=== PATIENT | male | born 1970 | race Caucasian/White ===

== ENCOUNTER → 2016-07-30 | Outpatient (CLI) | payer OTHER ==
[2016-07-30 11:26] LABS: HEMATOCRIT 47.1 % (42-52); MEAN CELL VOLUME 85.9 fL (80-100); MEAN CORPUSCULAR HGB CONC 36.1 g/dl (32-36); MEAN PLATELET VOLUME 9.2 fL (7.4-10.4); PLATELET COUNT 205 K/uL (130-400); RED BLOOD COUNT 5.48 M/uL (4.7-6.1); WHITE BLOOD COUNT 9.42 K/uL (4.8-10.8)
[2016-07-30 11:53] LABS: ALT/SGPT 63 U/L (12-78); BLOOD UREA NITROGEN 21 mg/dl (7-18); BUN/CREATININE RATIO 19.1 (10-20); CALCIUM 8.8 mg/dl (8.5-10.1); CARBON DIOXIDE 30 mmol/L (21-32); CHLORIDE 104 mmol/L (98-107); CHOLESTEROL 148 mg/dl (0-200); GLUCOSE 98 mg/dl (70-99); POTASSIUM 4.3 mmol/L (3.5-5.1); SODIUM 142 mmol/L (136-145)
[2016-07-30 11:56] LABS: ALB/GLOB RATIO 1.3 (0.9-2); ALKALINE PHOSPHATASE 61 U/L (45-117); AST/SGOT 34 U/L (15-37); CHOLESTEROL/HDL RATIO 3.5; HDL CHOLESTEROL 42 mg/dl; LDL CHOLESTEROL CALCULATED 76 mg/dl; TRIGLYCERIDES 150 mg/dl (0-150); VERY LOW DENSITY LIPOPROT CALC 30 mg/dl
== END | disposition home or self-care (01) ==
LOC: C.LAB 10:41
PROVIDERS: ATTEND Internal Medicine
DX: Z00.00 Encounter for general adult medical examination without abnormal findings (principal); I10 Essential (primary) hypertension; Z87.11 Personal history of peptic ulcer disease

== ENCOUNTER → 2016-10-14 | Outpatient (CLI) | payer OTHER ==
[2016-10-16 04:01] LABS: URCREATININE 144 MG/DL (>/= 20)
== END | disposition home or self-care (01) ==
LOC: C.LABBC 15:32
PROVIDERS: ATTEND Internal Medicine
DX: Z79.899 Other long term (current) drug therapy (principal)

== ENCOUNTER → 2017-08-05 | Outpatient (CLI) | payer OTHER ==
[2017-08-05 11:07] LABS: ALBUMIN 4.1 gm/dl (3.4-5.0); ALT/SGPT 82 U/L (12-78); BLOOD UREA NITROGEN 18 mg/dl (7-18); CALCIUM 8.9 mg/dl (8.5-10.1); CARBON DIOXIDE 31 mmol/L (21-32); CHOLESTEROL 134 mg/dl (0-200); CREATININE 1.15 mg/dl (0.60-1.40); GLUCOSE 108 mg/dl (70-99); POTASSIUM 3.9 mmol/L (3.5-5.1); SODIUM 141 mmol/L (136-145)
[2017-08-05 11:10] LABS: ALKALINE PHOSPHATASE 58 U/L (45-117); AST/SGOT 43 U/L (15-37); LDL CHOLESTEROL CALCULATED 68 mg/dl; TOTAL PROTEIN 7.2 gm/dl (6.4-8.2)
== END | disposition home or self-care (01) ==
LOC: C.LAB1850 09:57
PROVIDERS: ATTEND Physician Assistant
DX: I10 Essential (primary) hypertension (principal); Z13.220 Encounter for screening for lipoid disorders

== ENCOUNTER → 2017-08-14 | Outpatient (CLI) | payer OTHER ==
[2017-08-14 17:18] LABS: ALBUMIN 4.1 gm/dl (3.4-5.0); TOTAL PROTEIN 7.5 gm/dl (6.4-8.2)
== END | disposition home or self-care (01) ==
LOC: C.LAB1850 16:01
PROVIDERS: ATTEND Physician Assistant
DX: R74.8 Abnormal levels of other serum enzymes (principal)

== ENCOUNTER → 2017-08-16 | Outpatient (CLI) | payer OTHER ==
--- NOTE | 2017-08-16 09:44 | Exercise Stress Test Report ---
Exercise Stress Test Report Exercise Stress Test Report Date of Service: 08/16/17 Exercise Stress Test Report CONCLUSION: -- No Evidence of Myocardial Ischemia by EKG criteria. -- Good exercise tolerance. -- Normal hemodynamic response to exercise. -- Test ended due to fatigue. NO exercise induced CP or unexpected dyspnea. -- A single ventricular couplet occurred at near peak exertion. No other ectopy or arrhythmias. INDICATION FOR EXERCISE STRESS TEST: -- Atypical, non-exertional chest / back pain. -- Family history of heart disease. PROCEDURE: -- Patient exercised for 7:43 on a standard Adolph Protocol attaining a 9.6 MET workload and 88% MPHR. -- No exercise induced CP or unexpected dyspnea. -- Resting HR was 63 bpm and increased to 151 bpm at peak exertion. -- Resting BP was 134/97 and peaked at 188/82 during early recovery phase. -- Resting EKG shows NSR at 63 bpm, Normal tracing. -- Peak EKG shows Sinus Tachycardia at 151 bpm, No S-T segment deviation or T wave abnormalities noted. NORMAL TRACING.
== END | disposition home or self-care (01) ==
LOC: C.CPL 08:32
PROVIDERS: ATTEND Physician Assistant
DX: I10 Essential (primary) hypertension (principal); Z82.49 Family history of ischemic heart disease and other diseases of the circulatory system

== ENCOUNTER → 2018-02-09 | Outpatient (CLI) | payer OTHER ==
[2018-02-09 16:17] LABS: ALBUMIN 4.1 gm/dl (3.4-5.0); ALKALINE PHOSPHATASE 63 U/L (45-117); ALT/SGPT 65 U/L (12-78); AST/SGOT 32 U/L (15-37); BLOOD UREA NITROGEN 17 mg/dl (7-18); CALCIUM 8.7 mg/dl (8.5-10.1); CARBON DIOXIDE 27 mmol/L (21-32); CREATININE 1.14 mg/dl (0.60-1.40); GLUCOSE 104 mg/dl (70-99); POTASSIUM 3.4 mmol/L (3.5-5.1); SODIUM 139 mmol/L (136-145); TOTAL PROTEIN 7.6 gm/dl (6.4-8.2)
== END | disposition home or self-care (01) ==
LOC: C.LAB1850 14:50
PROVIDERS: ATTEND Internal Medicine Clinical Cardiac Electrophysiology
DX: I10 Essential (primary) hypertension (principal); R07.89 Other chest pain